=== PATIENT | female | born 1965 | race Two or more races ===

== ENCOUNTER 2019-12-29 12:54 | Emergency (ER) | payer MEDICAID, OTHER ==
[~2019-12-29] VITALS: Ht 152.4 cm; Wt 74.8 kg
[2019-12-29 13:05] VITALS: BP 126/70
== END 2019-12-29 19:02 | disposition left against medical advice (07) ==
LOC: ER 12:54
DX: R11.2 Nausea with vomiting, unspecified (principal); R51 Headache; R42 Dizziness and giddiness; Z53.21 Procedure and treatment not carried out due to patient leaving prior to being seen by health care provider
CPT/HCPCS: 93005